=== PATIENT | female | born 1970 | race Caucasian/White ===

== ENCOUNTER 2018-05-02 09:49 | Day surgery (SDC) | payer BC ==
[~2018-05-02 09:49] MED LIST: LIDOCAINE 2% INJ 100 MG/5 ML SDV (FOR ANES.) As Ordered; PROPOFOL 200 MG/20 ML VIAL As Ordered
[2018-05-02] MEDS ORDERED: NS 1,000 ML IV (10:15)
== END 2018-05-02 11:25 | disposition home or self-care (01) ==
LOC: M OPP 09:49
DX: Z12.11 Encounter for screening for malignant neoplasm of colon (principal); Z87.891 Personal history of nicotine dependence; Z80.3 Family history of malignant neoplasm of breast
CPT/HCPCS: G0121

== ENCOUNTER → 2018-12-19 | Outpatient (REF) | payer BC | LOC: M LAB REF 16:30 | PROVIDERS: ATTEND Nurse Practitioner Women's Health | DX: N75.1 Abscess of Bartholin's gland (principal) ==

== ENCOUNTER → 2019-05-25 | Outpatient (REF) | payer BC | LOC: M LAB REF 13:21 | PROVIDERS: ATTEND Physician Assistant | DX: R35.0 Frequency of micturition (principal) ==

== ENCOUNTER → 2019-10-31 | Outpatient (REF) | payer BC | LOC: M LAB REF 12:43 | PROVIDERS: ATTEND Obstetrics & Gynecology | DX: N75.1 Abscess of Bartholin's gland (principal) ==

== ENCOUNTER → 2020-02-28 | Outpatient (REF) | payer BC ==
[2020-02-28 12:53] LABS: BASO % 0.3 % (0.0-1.0); EOS # 0.1 10^3/uL (0.0-0.5); EOS % 1.4 % (0.0-3.0); HEMATOCRIT 36.9 % (36.0-47.0); HEMOGLOBIN 12.1 g/dl (12.0-15.5); LYMPH # 1.7 10^3/uL (1.5-5.0); LYMPH % 26.9 % (24.0-44.0); MEAN CORPUSCULAR HEMOGLOBIN 31.7 pg (27.0-33.0); MEAN CORPUSCULAR HGB CONC 32.8 g/dl (32.0-36.5); MEAN CORPUSCULAR VOLUME 96.6 fl (80.0-96.0); MONO # 0.5 10^3/uL (0.0-0.8); NEUTROPHILS # 4.1 10^3/uL (1.5-8.5); NEUTROPHILS % 64.2 % (36.0-66.0); PLATELET COUNT, AUTOMATED 224 10^3/uL (150-450); RED BLOOD COUNT 3.82 10^6/uL (4.00-5.40); WHITE BLOOD COUNT 6.4 10^3/uL (4.0-10.0)
[2020-02-28 13:19] LABS: ALBUMIN 3.4 GM/DL (3.2-5.2); ALT/SGPT 21 U/L (12-78); BILIRUBIN,TOTAL 0.5 MG/DL (0.2-1.0); BLOOD UREA NITROGEN 11 MG/DL (7-18); CALCIUM LEVEL 8.3 MG/DL (8.5-10.1); CARBON DIOXIDE LEVEL 30 MEQ/L (21-32); CHLORIDE LEVEL 105 MEQ/L (98-107); CHOLESTEROL LEVEL 199 MG/DL (<200); CHOLESTEROL RISK RATIO 3.491 (<5); CREATININE FOR GFR 0.69 MG/DL (0.55-1.30); GLOMERULAR FILTRATION RATE > 60.0 (>51); GLUCOSE, FASTING 80 MG/DL (70-100); HDL CHOLESTEROL 57 MG/DL (>40); LDL CHOLESTEROL 128 MG/DL (<100); NON-HDL-C 142 MG/DL; POTASSIUM SERUM 4.2 MEQ/L (3.5-5.1); SODIUM LEVEL 138 MEQ/L (136-145); TOTAL PROTEIN 6.6 GM/DL (6.4-8.2); TRIGLYCERIDES LEVEL 69 MG/DL (<150)
== END ==
LOC: M LABDRWAD 12:18
PROVIDERS: ATTEND Family Medicine
DX: Z00.00 Encounter for general adult medical examination without abnormal findings (principal)

== ENCOUNTER → 2020-03-08 | Outpatient (CLI) | payer BC ==
[~2020-03-08] MED LIST changes: +IBUP80TA PO; -LIDOCAINE 2% INJ 100 MG/5 ML SDV (FOR ANES.) As Ordered; +OXYC1TAB23 PO; -PROPOFOL 200 MG/20 ML VIAL As Ordered
--- NOTE | 2020-03-08 21:26 | ECGEPIP ---
[facility] Test Date: 2020-03-08 Pat Name: ZAIN ASHRAF Department: Room: - Gender: Female Fondant Puff Maker: RICK : 1970 Requested By: DIANNA Castorena Order Number: [id number] Reading MD: Rosas Langston Measurements Intervals [place] Rate: 68 P: 56 TX: 173 QRS: 54 QRSD: 93 T: 60 QT: 363 QTc: 386 Interpretive Statements SINUS RHYTHM Within normal limits. No prior ECG available for comparison at the time of interpretation. Electronically Signed on 03-08-2020 21:25:35 EDT by Rosas Langston
== END ==
LOC: M EKG 06:22
PROVIDERS: ATTEND Anesthesiology
DX: Z01.818 Encounter for other preprocedural examination (principal)

== ENCOUNTER → 2020-03-11 | Outpatient (CLI) | payer BC | LOC: M LABSMTC 11:19 | PROVIDERS: ATTEND Anesthesiology | DX: Z03.818 Encounter for observation for suspected exposure to other biological agents ruled out (principal); Z11.59 Encounter for screening for other viral diseases | CPT/HCPCS: 87486; 87581; 87633; 87798; C9803 ==

== ENCOUNTER 2020-03-13 06:01 | Day surgery (SDC) | payer BC ==
[~2020-03-13] VITALS: Ht 165.1 cm; Wt 79.4 kg
[~2020-03-13 06:01] MED LIST changes: -IBUP80TA PO; +LIDOCAINE 1% MDV 20ML VIAL SQ PRN; -OXYC1TAB23 PO
[2020-03-13] MEDS ORDERED: fentaNYL 250 MCG/5 ML INJECTION (J3010) As Ordered ONE (06:59)
[2020-03-13] MEDS ORDERED: MIDAZOLAM INJ 2MG/2ML VIAL (J2250 PER 1MG) As Ordered ONE (06:59)
[2020-03-13] MEDS ORDERED: LIDOCAINE 2% 100MG/5ML SDV (FOR ANES.) As Ordered ONE (07:00)
[2020-03-13] MEDS ORDERED: propofoL 200 MG/20 ML VIAL As Ordered ONE (07:00)
[2020-03-13] MEDS ORDERED: LR 1,000 ML IV ONE (07:00)
[2020-03-13] MEDS ORDERED: ROCURONIUM BROMIDE 50 MG/5 ML VIAL As Ordered ONE ×2 (07:00→10:31)
[2020-03-13] MEDS ORDERED: dexameTHASONE 4 MG/ML 1ML VIAL (J1100 PER 1MG) As Ordered ONE (07:00)
[2020-03-13] MEDS ORDERED: SUGAMMADEX SODIUM 500 MG/5 ML VIAL (BRIDION) As Ordered ONE (07:00)
[2020-03-13] MEDS ORDERED: ePHEDrine SULFATE 25 MG/5 ML(5MG/ML) SYRINGE As Ordered ONE (07:00)
[2020-03-13] MEDS ORDERED: ONDANSETRON 4MG/2ML VIAL As Ordered ONE (07:00)
[2020-03-13] MEDS ORDERED: KETOROLAC 60 MG/2 ML VIAL As Ordered ONE (07:00)
[2020-03-13] MEDS ORDERED: PHENYLephrine HCL 500 MCG/5 ML (100MCG/ML) SYRINGE (J2370) As Ordered ONE ×2 (07:00→07:45)
[2020-03-13 07:20] LABS: HEMATOCRIT 37.6 % (36.0-47.0); HEMOGLOBIN 12.3 g/dl (12.0-15.5); MEAN CORPUSCULAR HEMOGLOBIN 31.5 pg (27.0-33.0); MEAN CORPUSCULAR HGB CONC 32.7 g/dl (32.0-36.5); MEAN CORPUSCULAR VOLUME 96.2 fl (80.0-96.0); PLATELET COUNT, AUTOMATED 248 10^3/uL (150-450); RED BLOOD COUNT 3.91 10^6/uL (4.00-5.40); WHITE BLOOD COUNT 5.4 10^3/uL (4.0-10.0)
[2020-03-13] MEDS ORDERED: BUPIVACAINE/EPIN 0.25% 30 ML VIAL As Ordered ONE (07:22)
[2020-03-13] MEDS ORDERED: FLUORESCEIN 10% (100MG/ML) 5 ML VIAL As Ordered ONE (07:23)
[2020-03-13 07:45] LABS: BLOOD UREA NITROGEN 10 MG/DL (7-18); CALCIUM LEVEL 8.7 MG/DL (8.5-10.1); CARBON DIOXIDE LEVEL 28 MEQ/L (21-32); CHLORIDE LEVEL 105 MEQ/L (98-107); CREATININE FOR GFR 0.78 MG/DL (0.55-1.30); GLOMERULAR FILTRATION RATE > 60.0 (>51); GLUCOSE, FASTING 82 MG/DL (70-100); POTASSIUM SERUM 4.1 MEQ/L (3.5-5.1); SODIUM LEVEL 138 MEQ/L (136-145)
[2020-03-13] MEDS ORDERED: ceFAZolin 2 GM/D5W 50 ML IV BAG (J0690 PER 500MG) As Ordered ONE (07:52)
[2020-03-13] MEDS ORDERED: ACETAMINOPHEN 1000MG 100ML IV BTL (OFIRMEV) (J0131 PER 10MG) As Ordered ONE ×2 (08:08→10:11)
[2020-03-13] MEDS ORDERED: OXYC1TAB23 PO (09:49)
[2020-03-13] MEDS ORDERED: IBUP80TA PO ×2 (09:49)
[2020-03-13] MEDS ORDERED: PERCOCET 5MG/325MG TAB PO PRN ×2 (10:30→10:45)
[2020-03-13] MEDS ORDERED: LR 1,000 ML IV SCH (10:30)
[2020-03-13] MEDS ORDERED: METOCLOPRAMIDE INJ 10MG/2ML VIAL (J2765 PER 1) IV PRN (10:30)
[2020-03-13] MEDS ORDERED: fentaNYL 100 MCG/2 ML INJECTION (J3010) IV PRN (10:30)
[2020-03-13] MEDS ORDERED: ONDANSETRON 4MG/2ML VIAL IV PRN (10:30)
[2020-03-13 11:00] VITALS: BP 132/62
[2020-03-13 11:30] VITALS: BP 142/75
[2020-03-13 12:00] VITALS: BP 151/70
[2020-03-13] MEDS ORDERED: SIMETHICONE 80 MG CHEW TAB PO SCH (12:00)
[2020-03-13 13:00] VITALS: BP 135/73
[2020-03-13] MEDS ORDERED: IBUPROFEN 800 MG TAB PO SCH (13:00)
[2020-03-13 14:00] VITALS: BP 114/65
--- NOTE | 2020-03-18 10:50 | RO ---
DATE OF PROCEDURE: 03/13/2020 Trista is a 50-year-old female with history of excessive frequent menstruation, also an enlarged fibroid uterus, as well as, recurrent Bartholin cyst. After extensive counseling in the [place], a decision was made to proceed robotic-assisted total hysterectomy, removal of both tubes and ovaries, and marsupialization of the left Bartholin gland, as well as, cystoscopy. PREOPERATIVE DIAGNOSES: 1. Excessive frequent menstruation 2. Enlarged fibroid uterus. 3. Recurrent left Bartholin gland abscess. 4. Endometrial polyp. POSTOPERATIVE DIAGNOSES: 1. Excessive frequent menstruation 2. Enlarged fibroid uterus. 3. Recurrent left Bartholin gland abscess. 4. Endometrial polyp. PROCEDURE: 1. Robotic-assisted total hysterectomy. 2. Removal of both tubes and ovaries. 3. Marsupialization of a left Bartholin gland. 4. Cystoscopy. SURGEON: Dr. Shola Howard SEASONAL RECRUITER: Aliza Batista ANESTHESIA: General. COMPLICATIONS: None. ESTIMATED BLOOD LOSS: Less than 50 mL. SPECIMEN SENT TO THE LAB: Uterus, tubes and ovaries. Bartholin gland. FINDINGS: Enlarged uterus. Normal-appearing tube with a left ovarian cyst. On cystoscopy, bilateral ureteral jets noted. No evidence of any bladder injury noted. DESCRIPTION OF PROCEDURE: After obtaining informed consent, the patient was taken to the operating room where general anesthetic was found to be adequate. She was then draped and prepped in the usual sterile fashion in the dorsal lithotomy position. At this point, a straight catheter of the bladder was performed for approximately 200 mL of clear urine. We then placed a weighted speculum in the posterior fornix of the vagina. Using a Ramos retractor, the anterior lip of the cervix was grasped and the uterus was sounded to approximately 10 cm in size. The HUMI II uterine manipulator was then placed. We then turned our attention to the abdomen where the Veress needle was inserted at the umbilicus. The abdomen was then insufflated with CO2 gas to approximately 3.5 liters. We then placed an 8 mm port above the umbilicus for the robotic camera port and then two left 8 mm lateral ports was placed for robotic arm two and the assist port, and on the right an 8 mm lateral port was placed for robotic arm one. We then placed the patient in steep Trendelenburg to about a 30 degrees angle. The robot was brought to the patient's right side. The camera port was then docked. The target anatomy was visualized and targeted. At this point after completing the targeting process, the robotic arm one and two was then docked in the usual fashion. The vessel sealer was placed on robotic arm one with a bipolar grasper on robotic arm two. At this point, I unscrubbed and went to the surgeon console to being the surgery. The entire pelvis and abdomen was inspected. The infundibulopelvic ligament was then grasped and cauterized it with the vessel sealer and cut. The was taken all the way down to include the round ligament and the uterine arteries all way down to the cervix. Then the anterior leaflet of the broad ligament was dissected to create a bladder flap. We then turned our attention to the opposite side which was done in a similar fashion. The bladder flap was completed. The bladder was pushed out of the operative field. At this point the vessel sealer was removed and Endo shear was placed. Anterior and posterior colpotomy was performed. Bilateral fallopian tubes and ovaries were removed through the vagina. They were left in there to maintain pneumoperitoneum. A V-Loc suture was then introduced as well as robotic needle refuse driver. The vaginal cuff was then closed in a running fashion using a #2-0 V-Loc suture. The pelvis copiously irrigated with normal saline and suctioned out. The peritoneum over the vaginal cuff was also closed using the V-Loc suture. 1 mL of Furacin was given by the anesthesiologist to help with the cystoscopy. I then rescrubbed and went to the patient side. The bladder was retrograde filled with 230 mL of saline. A cystoscopy was performed. Bilateral ureteral jets were noted. No evidence of any bladder injury noted. At this point the bladder was emptied. The robot was undocked and the robotic ports were closed using #3-0 Vicryl and Dermabond placed. 0.25% Marcaine was also given for postoperative pain at the incisional sites. I then turned my attention to the left Bartholin gland. Using two Allis', that area was elevated. A midline incision was made towards the vaginal area. The Bartholin gland was identified and removed and the area was then suture ligated using #3-0 Vicryl in a running fashion. Good hemostasis noted. The gland was completely marsupialized and left for drainage. Some areas were cauterized using the Bovie. After obtaining good hemostasis and the patient tolerating the procedure well, we then transferred her to the recovery room in stable condition.
== END 2020-03-13 15:20 | disposition home or self-care (01) ==
LOC: M SDC 06:01 → M PED 11:00 → M SDC 15:20
PROVIDERS: ATTEND Obstetrics & Gynecology
DX: N80.0 Endometriosis of uterus (principal); D25.2 Subserosal leiomyoma of uterus; D25.1 Intramural leiomyoma of uterus; N72 Inflammatory disease of cervix uteri; N83.01 Follicular cyst of right ovary; N85.2 Hypertrophy of uterus; N75.0 Cyst of Bartholin's gland; N84.0 Polyp of corpus uteri
CPT/HCPCS: 36415; 56440; 58571; 80048; 85027; 86850; 86900; 86901; 88307; J0131; J0690; J1100; J1885; J2250; J2370; J2405; J3010

== ENCOUNTER → 2021-09-13 | Outpatient (REF) ==
[~2021-09-13] MED LIST changes: +IBUP80TA PO; -LIDOCAINE 1% MDV 20ML VIAL SQ PRN; +OXYC1TAB23 PO
== END ==
LOC: M LABSMTC 09:26
PROVIDERS: ATTEND Pediatrics
DX: Z11.52 Encounter for screening for COVID-19 (principal); Z20.822 Contact with and (suspected) exposure to COVID-19

== ENCOUNTER → 2021-09-15 | Outpatient (REF) | payer BC | LOC: M LAB REF 17:49 | PROVIDERS: ATTEND Physician Assistant | DX: M54.50 Low back pain, unspecified (principal) ==

== ENCOUNTER → 2022-07-13 | Outpatient (REF) | payer BC | LOC: M LAB REF 16:21 | PROVIDERS: ATTEND Surgery | DX: D17.23 Benign lipomatous neoplasm of skin and subcutaneous tissue of right leg (principal) ==

== ENCOUNTER → 2023-02-17 | Outpatient (REF) | payer BC ==
[2023-02-17 14:44] LABS: BASO % 0.5 % (0.0-1.0); EOS # 0.1 10^3/uL (0.0-0.5); EOS % 1.6 % (0.0-3.0); HEMATOCRIT 41.6 % (36.0-47.0); HEMOGLOBIN 13.7 g/dl (12.0-15.5); LYMPH # 1.5 10^3/uL (1.5-5.0); LYMPH % 24.8 % (24.0-44.0); MEAN CORPUSCULAR HEMOGLOBIN 32.2 pg (27.0-33.0); MEAN CORPUSCULAR HGB CONC 32.9 g/dl (32.0-36.5); MEAN CORPUSCULAR VOLUME 97.9 fl (80.0-96.0); MONO # 0.5 10^3/uL (0.0-0.8); MONO % 8.1 % (2.0-8.0); NEUTROPHILS % 64.7 % (36.0-66.0); PLATELET COUNT, AUTOMATED 262 10^3/uL (150-450); RED BLOOD COUNT 4.25 10^6/uL (4.00-5.40); WHITE BLOOD COUNT 6.2 10^3/uL (4.0-10.0)
[2023-02-17 14:50] LABS: ALBUMIN 4.2 G/DL (3.2-5.2); ALKALINE PHOSPHATASE 82 U/L (46-116); ALT/SGPT 21 U/L (7.0-40); AST/SGOT 19 U/L (<34); BILIRUBIN,TOTAL 0.6 MG/DL (0.3-1.2); BLOOD UREA NITROGEN 16 MG/DL (9-23); CALCIUM LEVEL 9.6 MG/DL (8.5-10.1); CARBON DIOXIDE LEVEL 31 MMOL/L (20-31); CHLORIDE LEVEL 103 MMOL/L (98-107); CHOLESTEROL LEVEL 220 MG/DL (<200); CHOLESTEROL RISK RATIO 3.63 (<5); CREATININE FOR GFR 0.81 MG/DL (0.55-1.30); GLOMERULAR FILTRATION RATE > 60.0 (>51); GLUCOSE, FASTING 84 MG/DL (60-100); HDL CHOLESTEROL 60.6 MG/DL (>40); LDL CHOLESTEROL 134.6 MG/DL (<100); NON-HDL-C 159.4 MG/DL; POTASSIUM SERUM 4.1 MMOL/L (3.5-5.1); SODIUM LEVEL 139 MMOL/L (136-145); TRIGLYCERIDES LEVEL 124 MG/DL (<150)
== END ==
LOC: M LABDRWAD 13:06
PROVIDERS: ATTEND Registered Nurse
DX: Z00.00 Encounter for general adult medical examination without abnormal findings (principal)

== ENCOUNTER → 2024-03-14 | Outpatient (REF) | payer BC ==
[2024-03-14 14:43] LABS: BASO % 0.6 % (0.0-1.0); EOS # 0.1 10^3/uL (0.0-0.5); EOS % 2.1 % (0.0-3.0); HEMATOCRIT 41.5 % (36.0-47.0); HEMOGLOBIN 13.6 g/dl (12.0-15.5); LYMPH # 1.4 10^3/uL (1.5-5.0); MEAN CORPUSCULAR HEMOGLOBIN 32.5 pg (27.0-33.0); MEAN CORPUSCULAR HGB CONC 32.8 g/dl (32.0-36.5); MONO # 0.4 10^3/uL (0.0-0.8); MONO % 7.5 % (2.0-8.0); NEUTROPHILS # 2.8 10^3/uL (1.5-8.5); NEUTROPHILS % 59.6 % (36.0-66.0); PLATELET COUNT, AUTOMATED 255 10^3/uL (150-450); RED BLOOD COUNT 4.19 10^6/uL (4.00-5.40); WHITE BLOOD COUNT 4.7 10^3/uL (4.0-10.0)
[2024-03-14 14:56] LABS: ERYTHROCYTE SEDIMENTATION RATE 21 mm/hr (0-30)
[2024-03-14 14:58] LABS: ALBUMIN 3.7 G/DL (3.2-5.2); ALKALINE PHOSPHATASE 84 U/L (46-116); ALT/SGPT 24 U/L (7.0-40); AST/SGOT 12 U/L (<34); BILIRUBIN,TOTAL 0.5 MG/DL (0.3-1.2); BLOOD UREA NITROGEN 16 MG/DL (9-23); CALCIUM LEVEL 9.3 MG/DL (8.5-10.1); CARBON DIOXIDE LEVEL 30 MMOL/L (20-31); CHLORIDE LEVEL 107 MMOL/L (98-107); CHOLESTEROL LEVEL 207 MG/DL (<200); CHOLESTEROL RISK RATIO 3.38 (<5); GLOMERULAR FILTRATION RATE > 60.0 (>51); GLUCOSE, FASTING 94 MG/DL (60-100); HDL CHOLESTEROL 61.1 MG/DL (>40); LDL CHOLESTEROL 126.1 MG/DL (<100); NON-HDL-C 145.9 MG/DL; POTASSIUM SERUM 4.8 MMOL/L (3.5-5.1); SODIUM LEVEL 142 MMOL/L (136-145); TOTAL PROTEIN 6.8 G/DL (5.7-8.2); TRIGLYCERIDES LEVEL 99 MG/DL (<150)
[2024-03-14 15:21] LABS: RHEUMATOID FACTOR QUANT 3.7 IU/ML (<14)
[2024-03-14 15:22] LABS: URIC ACID 6.5 MG/DL (3.1-7.8)
[2024-03-15 14:37] LABS: ANA SCREEN, IFA NEGATIVE (NEGATIVE)
[2024-03-16 18:21] LABS: LYME TOTAL ANTIBODY CIA <= 0.90 Index (<=0.90)
== END ==
LOC: M LAB REF 13:52 → M LABDRWAD 13:52
PROVIDERS: ATTEND Family Medicine
DX: Z00.00 Encounter for general adult medical examination without abnormal findings (principal); M25.541 Pain in joints of right hand

== ENCOUNTER 2024-07-18 20:11 | Emergency (ER) | payer BC ==
[~2024-07-18] VITALS: Ht 165.1 cm; Wt 84.5 kg
[2024-07-18 20:42] LABS: BASO % 0.3 % (0.0-1.0); EOS # 0.1 10^3/uL (0.0-0.5); HEMATOCRIT 39.6 % (36.0-47.0); HEMOGLOBIN 13.3 g/dl (12.0-15.5); LYMPH # 2.1 10^3/uL (1.5-5.0); LYMPH % 31.7 % (24.0-44.0); MEAN CORPUSCULAR HEMOGLOBIN 32.6 pg (27.0-33.0); MEAN CORPUSCULAR HGB CONC 33.6 g/dl (32.0-36.5); MEAN CORPUSCULAR VOLUME 97.1 fl (80.0-96.0); MONO # 0.5 10^3/uL (0.0-0.8); MONO % 7.4 % (2.0-8.0); NEUTROPHILS # 3.9 10^3/uL (1.5-8.5); NEUTROPHILS % 58.3 % (36.0-66.0); PLATELET COUNT, AUTOMATED 265 10^3/uL (150-450); RED BLOOD COUNT 4.08 10^6/uL (4.00-5.40); WHITE BLOOD COUNT 6.6 10^3/uL (4.0-10.0)
[2024-07-18 20:54] LABS: INR 0.95; PROTHROMBIN TIME 12.4 SECONDS (12.5-14.5)
[2024-07-18 21:05] LABS: LIPASE 58 U/L (12-53)
[2024-07-18 21:06] LABS: CK-MB VALUE MASS < 1.0 NG/ML (<3.6)
[2024-07-18 21:07] LABS: BLOOD UREA NITROGEN 18 MG/DL (9-23); CALCIUM LEVEL 9.5 MG/DL (8.5-10.1); CARBON DIOXIDE LEVEL 31 MMOL/L (20-31); CHLORIDE LEVEL 104 MMOL/L (98-107); CPK CREATINE PHOSPHOKINASE 63 U/L (34-145); CREATININE FOR GFR 0.71 MG/DL (0.55-1.30); GLOMERULAR FILTRATION RATE > 60.0 (>51); GLUCOSE, FASTING 107 MG/DL (60-100); MB/CK RELATIVE INDEX 1.58 (< OR =4); POTASSIUM SERUM 3.9 MMOL/L (3.5-5.1); SODIUM LEVEL 140 MMOL/L (136-145)
[2024-07-18 22:15] LABS: CK-MB VALUE MASS < 1.0 NG/ML (<3.6)
[2024-07-18 22:16] LABS: CPK CREATINE PHOSPHOKINASE 52 U/L (34-145); MB/CK RELATIVE INDEX 1.92 (< OR =4)
[2024-07-18] MEDS ORDERED: IBUP80TA PO (23:20)
[2024-07-19] VITALS: BP 110/72; TEMP 96.8; O2SAT 99
[2024-07-19] MEDS: KETOROLAC 30 MG/ML 1ML VIAL IV ONE (00:02)
== END 2024-07-19 00:05 | disposition home or self-care (01) ==
LOC: M ED 20:11
DX: R07.9 Chest pain, unspecified (principal)
CPT/HCPCS: 71045; 80048; 82550; 82553; 83690; 84484; 85025; 85610; 93005; 93041; 94760; 96374; 99285; J1885

== ENCOUNTER → 2025-05-31 | Outpatient (CLI) | payer BC ==
[2025-05-31 13:30] LABS: ALT/SGPT 23.0 U/L (7.0-40); AST/SGOT 21.0 U/L (<34); CALCIUM LEVEL 9.4 MG/DL (8.5-10.1); CARBON DIOXIDE LEVEL 30.0 MMOL/L (20-31); CHLORIDE LEVEL 104.0 MMOL/L (98-107); CHOLESTEROL LEVEL 225.0 MG/DL (<200); CHOLESTEROL RISK RATIO 3.61 (<5); CREATININE FOR GFR 0.78 MG/DL (0.55-1.30); GLOMERULAR FILTRATION RATE 88.5 (>51); LDL CHOLESTEROL 140.6 MG/DL (<100); NON-HDL-C 162.8 MG/DL; POTASSIUM SERUM 4.6 MMOL/L (3.5-5.1); SODIUM LEVEL 143.0 MMOL/L (136-145); TRIGLYCERIDES LEVEL 111.0 MG/DL (<150)
[2025-05-31 13:39] LABS: BASO # 0.0 10^3/uL (0.0-0.2); BASO % 0.4 % (0.0-1.0); EOS # 0.1 10^3/uL (0.0-0.5); EOS % 1.7 % (0.0-3.0); LYMPH # 1.6 10^3/uL (1.5-5.0); LYMPH % 33.8 % (24.0-44.0); MONO # 0.4 10^3/uL (0.0-0.8); MONO % 7.9 % (2.0-8.0); NEUTROPHILS # 2.7 10^3/uL (1.5-8.5); NEUTROPHILS % 56.0 % (36.0-66.0); PLATELET COUNT, AUTOMATED 250 10^3/uL (150-450)
== END ==
LOC: M ADAMS 09:08
PROVIDERS: ATTEND Nurse Practitioner Family
DX: Z00.00 Encounter for general adult medical examination without abnormal findings (principal)